=== PATIENT | male | born 1995 | race African-American/Black ===

== ENCOUNTER 2017-10-17 02:47 | Emergency (ER) | payer SELFPAY ==
[2017-10-17] MEDS: AZITHROMYCIN 250 MG TAB PO (03:45)
[2017-10-17] MEDS: CEFTRIAXONE 250 MG INJ IM (03:45)
[2017-10-17] MEDS: KETOROLAC 60 MG INJ IM (05:33)
== END 2017-10-17 05:40 | disposition home or self-care (01) ==
LOC: FTE 02:47
DX: N34.2 Other urethritis (principal); R59.1 Generalized enlarged lymph nodes; F17.210 Nicotine dependence, cigarettes, uncomplicated
CPT/HCPCS: 76536; 87591; 96372; 99285-25